=== PATIENT | male | born 1995 | race Caucasian/White ===

== ENCOUNTER 2017-08-25 04:11 | Emergency (ER) | payer BC ==
[~2017-08-25] VITALS: Ht 180.3 cm; Wt 83.9 kg
[2017-08-25] MEDS ORDERED: PRAZOSIN 1 MG (04:39)
[2017-08-25] MEDS ORDERED: CLONAZEPAM 1 MG (04:39)
[2017-08-25] MEDS ORDERED: ORPHENADRINE 100 MG (04:39)
[2017-08-25] MEDS ORDERED: QUETIAPINE FUMARATE 100 MG (04:39)
[2017-08-25] MEDS ORDERED: BUPRENORPHINE 2 MG (04:39)
[2017-08-25] MEDS ORDERED: SERTRALINE HCL 25 MG (04:39)
--- NOTE | 2017-08-25 05:00 | NUR ---
Pt shireena from detox facility for epigastric pain radiating midsternal to his back. Pt placed on monitor NSR. Pt seen by Dr. Ballard. IV established, labs drawn and sent. Pt resting in position of comfort for self.
[2017-08-25 05:08] LABS: CARBON DIOXIDE 31 mmol/L (21-32); CHLORIDE 107 mmol/L (98-107); GLUCOSE 124 mg/dL (74-106); UREA NITROGEN, BLOOD 6 mg/dL (7-18)
[2017-08-25 05:21] LABS: ALANINE AMINOTRANSFERASE 23 U/L (16-63); ALKALINE PHOSPHATASE 76 U/L (50-136); ASPARTATE AMINOTRANSFERASE 10 U/L (15-37); BILIRUBIN,DIRECT < 0.1 mg/dL (0.0-0.2); BILIRUBIN,TOTAL 0.2 mg/dL (0.2-1.0); TOTAL PROTEIN, SERUM 6.6 g/dL (6.4-8.2)
[2017-08-25 05:27] LABS: BASOPHILS % (AUTO) 0.4 % (0.0-2.0); EOSINOPHILS # (AUTO) 0.1 K/uL (0.0-0.7); EOSINOPHILS % (AUTO) 1.3 % (0.0-7.0); HEMATOCRIT 43.3 % (40-50); HEMOGLOBIN 14.8 G/DL (14.0-18.0); LYMPHOCYTES # (AUTO) 2.6 K/UL (0.8-4.8); LYMPHOCYTES % (AUTO) 24.3 % (20.5-51.5); MEAN CORPUSCULAR HEMOGLOBIN 31.3 UUG (27.0-31.0); MEAN CORPUSCULAR HGB CONC 34 g/dL (32.0-37.0); MEAN CORPUSCULAR VOLUME 91.7 FL (82.0-92.0); MONOCYTES # (AUTO) 0.6 K/UL (0.1-1.30); MONOCYTES % (AUTO) 5.6 % (0.0-11.0); NEUTROPHILS # (AUTO) 7.2 K/UL (1.8-8.9); NEUTROPHILS % (AUTO) 68.4 % (38.5-71.5); PLATELET COUNT (AUTO) 301 K/UL (150-450); RED BLOOD CELL COUNT(AUTO) 4.72 MIL/UL (4.7-6.1); WHITE BLOOD COUNT (AUTO) 10.5 K/UL (4.0-11.2)
[2017-08-25] MEDS ORDERED: KETOROLAC TROMETHAMINE 30 MG INJ IVP ONE (06:30)
[2017-08-25] MEDS ORDERED: IV NORMAL SALINE 1000 ML BAG IV ONE (06:30)
--- NOTE | 2017-08-25 06:39 | NUR ---
Pt conts to c/o discomfort. Pt medicated for said discomfort, will monitor for effects of medication. Fluid bolus infusing freely to gravity.
[2017-08-25] MEDS ORDERED: KETOROLAC TROMETHAMINE 30 MG INJ ONE (06:41)
[2017-08-25] MEDS ORDERED: MORPHINE SULFATE 4 MG/1 ML DISP.SYRIN IV ONE (07:00)
[2017-08-25] MEDS ORDERED: ONDANSETRON IV *ER 4 MG/2 ML VIAL IV ONE (07:00)
[2017-08-25] MEDS ORDERED: IOHEXOL 350 100 ML INFUS..BTL ONE (07:01)
[2017-08-25] MEDS ORDERED: IV NORMAL SALINE 250 ML IV ONE (07:01)
--- NOTE | 2017-08-25 07:02 | NUR ---
Pt to CT via [facility]
--- NOTE | 2017-08-25 07:04 | NUR ---
Report given to DAMIEN Ryan. I relinquish care of pt at this time
[2017-08-25] MEDS ORDERED: MORPHINE SULFATE 4 MG/1 ML DISP.SYRIN ONE (07:12)
[2017-08-25] MEDS ORDERED: ONDANSETRON 4 MG/2 ML VIAL ONE (07:13)
--- NOTE | 2017-08-25 08:11 | NUR ---
pending discharge papers/EXIT life underwriter notes from MD. Mendez is AOx4, ambulated to bathroom with brisk steady gait. Patient wants to wait for his discharge papers outside of our ER dpeartment. "I want some fresh air." per patient's verbalization
[2017-08-25] MEDS ORDERED: AZITHROMYCIN 250 MG TABLET PO ONE (08:15)
--- NOTE | 2017-08-25 08:17 | NUR ---
IV removed@[id number]. Catheter intact and site benign. Pressure and 4x4 gauze applied to site. No bleeding noted.
[2017-08-25] MEDS ORDERED: AZITHROMYCIN 250 MG TABLET ONE (08:18)
--- NOTE | 2017-08-25 08:21 | NUR ---
Patient discharged to home in stable conditon. Written and verbal after care instructions given to patient and patient's caregiver from [facility]. Patient verbalizes understanding of instructions.
== END 2017-08-25 08:24 | disposition home or self-care (01) ==
LOC: ER 04:18
DX: R07.89 Other chest pain (principal); R91.8 Other nonspecific abnormal finding of lung field; F15.10 Other stimulant abuse, uncomplicated; F17.210 Nicotine dependence, cigarettes, uncomplicated
CPT/HCPCS: 36415; 70030-TC; 71010; 85025; 85730; 93005; A4663; J1885; J2270; J2405; J7030; J7050; Q0144; Q9967